=== PATIENT | female | born 1980 | race Caucasian/White ===

== ENCOUNTER 2024-02-26 23:53 | Emergency (ER) | payer OTHER, SELFPAY ==
[2024-02-27 00:05] VITALS: BP 124/88
--- NOTE | 2024-02-27 00:48 | ED.SKININJ ---
HPI-Injury
General
Chief Complaint: Skin Surface Trauma
Source: patient and spouse
Exam Limitations: none
Time Seen by Provider: 02/27/24 00:38
Nursing documentation reviewed up to this point in time: agreed with
Travel History
Have you had any contact with someone who has COVID-19?: No
Do you have any symptoms of coronavirus? Fever > 100 degrees, chills, cough, shortness of breath, sore throat, loss of taste or smell, muscle aches, or headache?: No
History of Present Illness-Injury
Initial Injury comments:
43-year-old female with no significant past medical history states she stumbled and fell on her patio tonight striking the left orbit causing a laceration. She does admit to drinking earlier tonight. She denies loss of consciousness. She denies a
headache or neck pain. She denies change in vision. She denies nausea or vomiting. She has a scrape on her left knee and denies any bony pain to her extremities. She states she had a tetanus immunization within the past 5 years.
Review of Systems
Review of Systems
Allergies reviewed?: Yes
All Other Systems: ROS reviewed and negative except as documented in HPI and ROS
Cardiac: Denies syncope
Musculoskeletal: Denies neck pain or back pain
Skin: Reports other (Cut left orbit)
Neurological: Reports no symptoms
Skin Exam
Laceration
Left lateral orbit:
Length in cm: 1
Orientation: horizontal
Type of Laceration: simple
Any active bleeding?: no active bleeding
Phy Exam
Physical Exam
Physical Exam:
GENERAL: No acute distress. A&Ox3.
CONSTITUTIONAL: Afebrile.
EYES: PERRL, conjunctivae normal, mild tenderness lateral orbit, no depressed bone, EOMs intact
Neck: Supple
ENMT: moist mucus membranes, Pharynx nl
RESPIRATORY: Regular respirations, nonlabored, lungs clear.
CARDIOVASCULAR: Regular rate and rhythm, no murmurs, no rubs.
GI: Soft, nontender, normal BS
MUSCULOSKELETAL: No spinal bony tenderness. Moves all extremities well. Moves with ease. Well perfused.
SKIN: Warm, dry, pink
PSYCH: Normal mood and affect. Well kept, interactive and appropriate
NEUROLOGIC: Awake, alert and oriented. Speech clear. Cranial nerves II through XII intact. No focal neurological deficits
Course
Vital Signs
Initial and Last Documented VS:
Initial Vital Signs
Pulse Resp BP Pulse Ox
84 22 124/88 100
02/27/24 00:05 02/27/24 00:05 02/27/24 00:05 02/27/24 00:05
Last Documented Vital Signs
Pulse Resp BP Pulse Ox
84 22 124/88 100
02/27/24 00:05 02/27/24 00:05 02/27/24 00:05 02/27/24 00:05
Procedures
Laceration Closure
Left lateral orbit:
Status of Wound: clean
Size of Wound in cm: 1
Description of Wound Edges: sharp
Preparation: cleaned with saline
Revision/Debridement: routine- no revision
Type of Closure: Dermabond-skin glue
MDM/Problems Addressed
Differential Diagnosis Includes:
Minor head injury, concussion
MDM/Problems Addressed:
43-year-old female with no significant past medical history states she stumbled and fell on her patio tonight striking the left orbit causing a laceration. She does admit to drinking earlier tonight. She denies loss of consciousness. She denies a
headache or neck pain. She denies change in vision. She denies nausea or vomiting. She has a scrape on her left knee and denies any bony pain to her extremities. She states she had a tetanus immunization within the past 5 years.
After cleaning the wound well, wound edges well-approximated with wound glue
No sign of concussion or significant head injury, No LOC, not anticoagulated. No significant orbital tenderness, EOMs intact, No indication for imaging
*Critical Care Note
Total Time (30-74mins, 75-104mins- exclusive of procedures): Not Applicable
ED Attending Note
-
Portions of this chart may have been created with voice recognition software.� Occasional wrong word or��sound alike� substitutions may have occurred due to the inherent limitations of voice recognition software.
Discharge Plan
Departure
Patient Disposition: Home (Routine Discharge)
Date of Disposition: 02/27/24
Time of Disposition: 00:52
Patient with high blood pressure during this ER visit?: No
Condition: Good
Discharge Problem:
Fall from slip, trip, or stumble, Laceration of left orbit, Abrasion of knee
Instructions: Laceration Repair With Glue (DC), Contusion (DC), Minor Head Injury (DC)
Referrals:
UNKNOWN - PT DOES,NOT KNOW [Family Provider] -
Activity Restrictions/Additional Instructions:
As we discussed, you have a contusion of the orbit as well as a laceration.
You may briefly wet the area in the shower, just do not rub it or apply any ointments. This wound will heal in 7 days. The glue should slough off within the next 10 days.
Seek medical care immediately for vomiting more than once in 1 hour, headache that gets worse and worse despite Tylenol, or confusion.
Interventions
Interventions:
*Nursing Disposition Last Done: 02/27/24 00:56
Discharge Date and Time
Discharge Date/Time: 02/27/24 00:57
Print Language: LATVIAN
== END 2024-02-27 00:57 | disposition home or self-care (01) ==
LOC: EMR 23:53
PROVIDERS: EMERGENCY PHYSICIAN Emergency Medicine
DX: S01.81XA Laceration without foreign body of other part of head, initial encounter (principal); S80.219A Abrasion, unspecified knee, initial encounter; W19.XXXA Unspecified fall, initial encounter
CPT/HCPCS: 99282; 12011